=== PATIENT | male | born 1975 | race Caucasian/White ===

== ENCOUNTER 2019-01-21 09:31 | Emergency (ER) | payer MEDICAID ==
[~2019-01-21] VITALS: Ht 175.3 cm; Wt 71.3 kg
[2019-01-21 09:33] VITALS: Ht 175.3 cm; Wt 71.3 kg
--- NOTE | 2019-01-21 12:57 | ERD ---
ER Documentation Chief Complaint Chief Complaint bilat foot numbness x 3 yr HPI The patient is a 44-year-old male, presenting to the ER because of bilateral foot numbness for more than 3 years. He has history of diabetes but did not take medication for the last year. He denies fever, chills, neck pain, chest pain, dyspnea. He complains of vague abdominal discomfort with nausea and intermittent vomiting of mostly mucus, nonbloody/nonbilious, denies hematochezia/hematemesis, c/o intermittent loose stool. He has decreased appe tite because he does not feel hungry. He drinks, denies smoking or using any illicit drug Past medical history: Diabetes mellitus, he was on dialysis for about 6 weeks 3 years ago due to diabetes Past surgical history: None ROS All systems reviewed and are negative except as per history of present illness. Medications Home Meds Active Scripts Metformin* (Glucophage*) 500 Mg Tab, 500 MG PO WITH LUNCH DINNER PRN for bid, #20 TAB Prov:ANA CRISTINA NEVES MD 01/21/19 Gabapentin* (Neurontin*) 300 Mg Capsule, 300 MG PO BID, #15 CAP Prov:ANA CRISTINA NEVES MD 01/21/19 Reported Medications Metformin* (Glucophage*) 1,000 Mg Tablet, 1000 MG PO BID, #60 TAB 01/21/19 Allergies Allergies: Coded Allergies: No Known Allergy (Unverified , 01/21/19) Physical Exam Vitals Vital Signs Date Temp Pulse Resp B/P (MAP) Pulse Ox O2 O2 Flow FiO2 Time Delivery Rate 01/21/19 88 18 121/81 98 Room Air 16:31 (94) 01/21/19 98.4 99 19 122/86 99 09:33 (98) Physical Exam Const: No acute distress. Head: Atraumatic. Eyes: Normal Conjunctiva. ENT: Normal External Ears, Nose and Mouth. Neck: Full range of motion. No meningismus. Resp: Clear to auscultation bilaterally. Cardio: Regular rate and rhythm. Abd: Soft, non distended, normal bowel sounds, non tender. Skin: No petechiae or rashes. Back: No midline or flank tenderness. Ext: No cyanosis, or edema. No calf tenderness Neur: Awake and alert. No focal deficit Psych: Normal Mood and Affect. Result Diagram: 01/21/19 1321 01/21/19 1321 Results 24 hrs Laboratory Tests Test 01/21/19 13:05 01/21/19 13:19 01/21/19 13:21 01/21/19 14:50 Blood Gas Blood venous Specimen Source Arterial Blood 01/21/2019 3:05: Date Drawn 44 PM Arterial Blood VENOUS LINE Gas Puncture Site Jesu Test N/A Venous Blood pH 7.422 Venous Blood 34.5 mmHG pCO2 (Temp Corrected ) Venous Blood 23.6 mmHG pO2 (Temp Corrected ) Venous Blood 22.0 mmol/L HCO3 Venous Blood 41.3 mmHG Oxygen Saturation Venous Blood -1.8 mmol/L Base Excess Venous Blood 13.6 g/dl Total Hemoglobin Venous Blood 40.9 % Oxyhemoglobin Venous Blood 0.5 % Methemoglobin Carboxyhemoglob 0.5 % in Blood Gas 37.0 C Temperature Blood Gas 20 Actual Respiration Rat e Blood Gas ROOM AIR Modality FiO2 21.0 % Blood Gas ANGELO RT Notified Whom Blood Gas 01/21/2019 3:09: Notified Time 36 PM Bedside Glucose 288 mg/dL White Blood 3.3 10^3/ul Count Red Blood Count 4.50 10^6/ul Hemoglobin 15.3 g/dl Hematocrit 41.7 % Mean 92.7 fl Corpuscular Volume Mean 34.0 pg Corpuscular Hemoglobin Mean 36.7 g/dl Corpuscular Hemoglobin Conc ent Red Cell 11.0 % Distribution Width Platelet Count 126 10^3/UL Mean Platelet 8.6 fl Volume Immature 0.600 % Granulocytes % Neutrophils % 47.8 % Lymphocytes % 37.2 % Monocytes % 13.5 % Eosinophils % 0.3 % Basophils % 0.6 % Nucleated Red 0.0 /100WBC Blood Cells % Immature 0.020 10^3/ul Granulocytes # Neutrophils # 1.6 10^3/ul Lymphocytes # 1.2 10^3/ul Monocytes # 0.4 10^3/ul Eosinophils # 0.0 10^3/ul Basophils # 0.0 10^3/ul Nucleated Red 0.0 10^3/ul Blood Cells # Sodium Level 135 mmol/L Potassium Level 4.3 mmol/L Chloride Level 91 mmol/L Carbon Dioxide 25 mmol/L Level Anion Gap 19 Blood Urea 9 mg/dl Nitrogen Creatinine 0.46 mg/dl Est Glomerular > 60 mL/min Filtrat Rate mL/min Glucose Level 283 mg/dl Calcium Level 9.9 mg/dl Phosphorus 4.5 mg/dl Level Magnesium Level 1.9 mg/dl Total Bilirubin 0.5 mg/dl Direct 0.00 mg/dl Bilirubin Indirect 0.5 mg/dl Bilirubin Aspartate Amino 308 IU/L Transf (AST/SGO T) Alanine 160 IU/L Aminotransferas e (ALT/SGPT) Alkaline 130 IU/L Phosphatase Total Protein 8.2 g/dl Albumin 4.7 g/dl Globulin 3.50 g/dl Albumin/Globuli 1.34 n Ratio Lipase 196 U/L Ethyl Alcohol 79.0 mg/dl Level Urine Color YELLOW Urine Clarity CLEAR Urine pH 6.0 Urine Specific 1.023 Ramsay Urine Ketones TRACE mg/dL Urine Nitrite NEGATIVE mg/dL Urine Bilirubin NEGATIVE mg/dL Urine 1+ mg/dL Urobilinogen Urine Leukocyte NEGATIVE Carolynn/ul Esterase Urine 0 /HPF Microscopic RBC Urine 0 /HPF Microscopic WBC Urine NEGATIVE mg/dL Hemoglobin Urine Glucose 3+ mg/dL Urine Total 2+ mg/dl Protein Urine Opiates Negative Screen Urine Negative Barbiturates Urine Negative Amphetamines Screen Urine Negative Benzodiazepines Screen Urine Cocaine Negative Screen Urine Negative Cannabinoids Current Medications Medications Dose Sig/Eloisa Start Time Status Last (Trade) Ordered Route PRN Stop Time Admin Dose Reason Admin Sodium 710 ml @ ONCE ONCE 01/21/19 DC 01/21/19 Chloride 710 mls/hr IV 13:30 13:44 01/21/19 14:29 Sodium 1,000 ml @ Q1H ONCE 01/21/19 DC 01/21/19 Chloride 1,000 mls/hr IV 14:30 15:14 01/21/19 15:29 Procedures/MDM MEDICAL MAKING DECISION: The patient is a 44-year-old male, presenting with acute diabetic hyperglycemia, diabetic peripheral neuropathy, alcohol abuse. He was treated with normosaline 10 mL/kg IV upon arrival and later 1L NS IV for acute diabetic hyperglycemia, acute diabetic neuropathy The differential diagnoses considered include but are not limited to dehydration, electrolyte imbalance, DVT, substance abuse Departure Diagnosis: Primary Impression: Hyperglycemia Additional Impressions: Diabetic neuropathy Leukopenia Thrombocytopenia Abnormal LFTs Condition: Good Comments He was discharged with metformin and Neurontin I discussed the findings with the patient. I advised the patient to follow-up with the primary physician in about 2-3 days, sooner if needed and return if any concern. Disclaimer: Inadvertent spelling and grammatical errors are likely due to EHR/dictation software use and do not reflect on the overall quality of patient care. Also, please note that the electronic time recorded on this note does not necessarily reflect the actual time of the patient encounter. ANA CRISTINA NEVES MD Jan 21, 2019 12:57
[2019-01-21] MEDS ORDERED: MTF1000T PO (13:10)
[2019-01-21] MEDS ORDERED: SOD CHLORIDE 0.9% IV ONE (13:30)
[2019-01-21] MEDS ORDERED: SOD CHLORIDE 0.9% 1,000 ML IV ONE (14:30)
[2019-01-21] MEDS ORDERED: GABA300C PO (15:28)
[2019-01-21] MEDS ORDERED: METF-849 PO (15:29)
[2019-01-21 16:31] VITALS: BP 121/81; PULSE 88; RESP 18
== END 2019-01-21 16:33 | disposition home or self-care (01) ==
LOC: E/R 09:31
DX: E11.65 Type 2 diabetes mellitus with hyperglycemia (principal); E11.40 Type 2 diabetes mellitus with diabetic neuropathy, unspecified; D72.819 Decreased white blood cell count, unspecified; D69.6 Thrombocytopenia, unspecified; R94.5 Abnormal results of liver function studies
CPT/HCPCS: 36415; 80053; 80307; 81001; 82803; 82962; 83690; 83735; 84100; 85025; J7030; Z7502